=== PATIENT | male | born 1990 | race Caucasian/White ===

== ENCOUNTER 2024-09-02 07:09 | Emergency (ER) | payer MEDICAID ==
[~2024-09-02] VITALS: Ht 172.7 cm; Wt 91.0 kg
[2024-09-02 07:15] VITALS: BP 120/80; PULSE 89; RESP 16; TEMP 36.4; O2SAT 99
== END 2024-09-02 09:00 | disposition left against medical advice (07) ==
LOC: ER 07:09
DX: M79.604 Pain in right leg (principal); F20.9 Schizophrenia, unspecified; Z53.21 Procedure and treatment not carried out due to patient leaving prior to being seen by health care provider

== ENCOUNTER 2024-12-25 14:44 | Emergency (ER) | payer MEDICAID ==
[~2024-12-25] VITALS: Ht 175.3 cm; Wt 96.5 kg
[2024-12-25 14:46] VITALS: O2SAT 97
[2024-12-25 15:04] VITALS: TEMP 36.8; O2SAT 97
[2024-12-25] MEDS ORDERED: NAPR-681 MT (15:46)
[2024-12-25 16:21] VITALS: BP 124/73; PULSE 88; RESP 18; TEMP 98.2
[2024-12-25] MEDS: KETOROLAC 30MG/ML VIAL IM ONE (16:21)
[2024-12-25] MEDS: ACETAMINOPHEN 500MG TABLET PO ONE (16:21)
== END 2024-12-25 16:22 | disposition home or self-care (01) ==
LOC: ER 14:44
DX: M79.651 Pain in right thigh (principal); F20.9 Schizophrenia, unspecified; Z79.1 Long term (current) use of non-steroidal anti-inflammatories (NSAID); Z88.0 Allergy status to penicillin
CPT/HCPCS: 99283; 96372; J1885